=== PATIENT | male | born 1950 | race Caucasian/White ===

== ENCOUNTER 2017-01-10 09:03 | Inpatient (IN) | payer MEDICARE ==
[~2017-01-10] VITALS: Ht 182.9 cm; Wt 88.2 kg
[2017-01-10] MEDS ORDERED: SODIUM CHLORIDE FLUSH 10ML SYR IVF ONE (10:00)
[2017-01-10 10:26] LABS: ASPARTATE AMINO TRANSFERASE 31 U/L (15-37); BLOOD UREA NITROGEN 18 mg/dL (7-18)
[2017-01-10 10:32] LABS: IS PT STATUS REG ER OR PRE ER? YES
[2017-01-10] MEDS: SODIUM CHLORIDE 0.9% 1,000 ML IV SCH ×4 (11:18→23:27)
[2017-01-10] MEDS ORDERED: ACETAMINOPHEN 325 MG TABLET PO PRN ×2 (11:30→12:30)
[2017-01-10 11:45] VITALS: BP 156/98
[2017-01-10] MEDS ORDERED: hydrALAzine 20 MG/ML, 1ML IV PRN (12:30)
[2017-01-10] MEDS ORDERED: ENALAPRILAT 1.25 MG/ML, 2ML IV PRN (12:30)
[2017-01-10] MEDS ORDERED: ONDANSETRON 2MG/ML, 2ML IVPush PRN (12:30)
[2017-01-10] MEDS ORDERED: morphine SULFATE 10 MG/ML, 1ML IVPush PRN (12:30)
[2017-01-10] MEDS ORDERED: POLYETHYLENE GLYCOL 17 GM PACKET PO PRN (12:30)
[2017-01-10] MEDS ORDERED: LABETALOL 5MG/ML, 20ML IVPush PRN (12:30)
[2017-01-10] MEDS ORDERED: HYDROcodone/APAP 5/325 TABLET PO PRN (12:30)
[2017-01-10] MEDS ORDERED: DOCUSATE 100 MG CAPSULE PO PRN (12:30)
[2017-01-10] MEDS ORDERED: MIDAZOLAM 1 MG/ML, 5ML ONE ×2 (13:15→15:01)
[2017-01-10] MEDS ORDERED: FENTANYL PF 100 MCG/2ML ONE ×2 (13:15→15:02)
[2017-01-10] MEDS ORDERED: NITROGLYCERIN 5 MG/ML, 10ML ONE (13:16)
[2017-01-10] MEDS ORDERED: BIVALIRUDIN 250 MG ONE ×2 (13:16→15:03)
[2017-01-10] MEDS ORDERED: VERAPAMIL 2.5 MG/ML, 2ML ONE (13:16)
[2017-01-10] MEDS ORDERED: LIDOCAINE 2%, 20ML ONE (13:16)
[2017-01-10] MEDS ORDERED: TICAGRELOR 90 MG TABLET ONE (13:16)
[2017-01-10] MEDS ORDERED: HEPARIN 1,000 UNITS/ML, 10ML ONE (13:16)
[2017-01-10] MEDS ORDERED: HEPARIN 5,000 UNITS/ML, 1ML IV PRN (13:30)
[2017-01-10] MEDS ORDERED: HEPARIN 5,000 UNITS/ML, 1ML IV ONE (13:30)
[2017-01-10] MEDS ORDERED: HEPARIN 25,000 UNITS/500ML PMX 500 ML IV PRN (13:30)
[2017-01-10] MEDS ORDERED: BIVALIRUDIN 250 MG in DEXTROSE 5% 50 ML IV SCH (15:27)
[2017-01-10] MEDS ORDERED: ASPIRIN 325 MG TABLET EC ONE (15:31)
[2017-01-10] MEDS: INSULIN ASPART 100 UNITS/ML, PEN SQ-INSULIN SCH ×2 (16:00→21:07)
[2017-01-10] MEDS: METOPROLOL TARTRATE 25 MG TABLET PO SCH ×2 (17:11→18:00)
[2017-01-10 17:21] VITALS: BP 165/97
[2017-01-10 17:43] LABS: IS PT STATUS REG ER OR PRE ER? NO
[2017-01-10 20:08] VITALS: BP 141/80
[2017-01-10] MEDS: TICAGRELOR 90 MG TABLET PO SCH (20:10)
[2017-01-10] MEDS: ATORVASTATIN 80 MG TABLET PO SCH (20:10)
[2017-01-10 21:58] LABS: IS PT STATUS REG ER OR PRE ER? NO
[2017-01-10] MEDS: ZOLPIDEM 5MG TABLET PO PRN (22:14)
[2017-01-11] MEDS: SODIUM CHLORIDE 0.9% 1,000 ML IV SCH ×4 (00:38→20:43)
[2017-01-11 02:53] VITALS: BP 130/77
[2017-01-11 04:26] LABS: IS PT STATUS REG ER OR PRE ER? NO
[2017-01-11 05:04] LABS: BLOOD UREA NITROGEN 15 mg/dL (7-18)
[2017-01-11] MEDS ORDERED: ASPIRIN 81 MG TABLET EC PO SCH (06:00)
[2017-01-11] MEDS: METOPROLOL TARTRATE 25 MG TABLET PO SCH ×2 (06:22→16:34)
[2017-01-11 06:58] VITALS: BP 145/87
[2017-01-11] MEDS: ASPIRIN 81 MG TABLET EC PO SCH (08:17)
[2017-01-11] MEDS: TICAGRELOR 90 MG TABLET PO SCH ×2 (08:17→21:10)
[2017-01-11] MEDS: INSULIN ASPART 100 UNITS/ML, PEN SQ-INSULIN SCH ×4 (08:20→21:00)
[2017-01-11] MEDS: SENNA/DOCUSATE TABLET PO SCH (08:23)
[2017-01-11] MEDS: metFORMIN 500 MG TABLET PO SCH ×2 (09:48→21:00)
[2017-01-11 13:30] VITALS: BP 145/77
[2017-01-11 19:22] VITALS: BP 146/78
[2017-01-11] MEDS: ATORVASTATIN 80 MG TABLET PO SCH (21:10)
[2017-01-11] MEDS: ZOLPIDEM 5MG TABLET PO PRN (23:02)
[2017-01-12] MEDS: SODIUM CHLORIDE 0.9% 1,000 ML IV SCH (03:01)
[2017-01-12 03:06] VITALS: BP 161/83
[2017-01-12 05:20] LABS: BLOOD UREA NITROGEN 14 mg/dL (7-18)
[2017-01-12] MEDS: METOPROLOL TARTRATE 25 MG TABLET PO SCH (06:07)
[2017-01-12] MEDS: INSULIN ASPART 100 UNITS/ML, PEN SQ-INSULIN SCH (07:00)
[2017-01-12] MEDS: TICAGRELOR 90 MG TABLET PO SCH (07:34)
[2017-01-12] MEDS: ASPIRIN 81 MG TABLET EC PO SCH (07:34)
[2017-01-12] MEDS: metFORMIN 500 MG TABLET PO SCH (07:34)
[2017-01-12] MEDS: SENNA/DOCUSATE TABLET PO SCH (07:35)
[2017-01-12 09:20] VITALS: BP 162/91
[2017-01-12] MEDS ORDERED: METO50TA82 PO (10:28)
[2017-01-12] MEDS ORDERED: METF500T PO (10:28)
[2017-01-12] MEDS ORDERED: ASPI-621 PO (10:28)
[2017-01-12] MEDS ORDERED: ATOR80TA75 PO (10:28)
[2017-01-12] MEDS ORDERED: LISI5TAB7 PO (10:28)
[2017-01-12] MEDS ORDERED: TICA90TA PO (10:28)
[2017-01-12] MEDS ORDERED: METOPROLOL TARTRATE 50 MG TABLET PO SCH (18:00)
== END 2017-01-12 11:55 | disposition home or self-care (01) | DRG 246 ==
LOC: ED 11:19 → SUATTDRO 12:04 → 5SO 12:05 → DCLOUNGE 01-12 11:35
PROVIDERS: ADMIT Family Medicine; ATTEND Family Medicine
PROC: 027034Z Dilation of Coronary Artery, One Artery with Drug-eluting Intraluminal Device, Percutaneous Approach (ICD-10-PCS; principal; 2017-01-10)
PROC: 4A023N7 Measurement of Cardiac Sampling and Pressure, Left Heart, Percutaneous Approach (ICD-10-PCS; 2017-01-10)
PROC: B2111ZZ Fluoroscopy of Multiple Coronary Arteries using Low Osmolar Contrast (ICD-10-PCS; 2017-01-10)
PROC: B2151ZZ Fluoroscopy of Left Heart using Low Osmolar Contrast (ICD-10-PCS; 2017-01-10)
DX: I21.4 Non-ST elevation (NSTEMI) myocardial infarction (principal); I50.31 Acute diastolic (congestive) heart failure; I16.1 Hypertensive emergency; E11.65 Type 2 diabetes mellitus with hyperglycemia; E78.5 Hyperlipidemia, unspecified; I11.0 Hypertensive heart disease with heart failure; I25.10 Atherosclerotic heart disease of native coronary artery without angina pectoris; Z79.82 Long term (current) use of aspirin; Z87.891 Personal history of nicotine dependence
CPT/HCPCS: 36415; 71010; 80048; 80053; 80061; 82040; 82962; 83036; 83880; 84484; 85025; 85379; 85520; 87324; 93005; 93306; 93458; 99156; 99157; 99285; C1894; C9600; J0583; J1644; J1815; J2250; J3010; J3490; C1725; C1769; C1874; C1887; J7030; Q9967